=== PATIENT | male | born 1980 | race Two or more races ===

== ENCOUNTER 2019-04-19 02:59 | Inpatient (IN) | payer SELFPAY ==
[~2019-04-19] VITALS: Ht 177.8 cm; Wt 132.9 kg
[2019-04-19] MEDS ORDERED: SODIUM CHLORIDE 0.9% 500 ML IVB ONE (03:55)
[2019-04-19] MEDS ORDERED: ONDANSETRON HCL 4 MG/2 ML VIAL IV ONE (04:00)
[2019-04-19] MEDS ORDERED: HYDROmorphone HCL 2 MG/ML VL IV ONE ×2 (04:00→06:00)
[2019-04-19 04:37] LABS: Basophils # (auto) 0 uL; Basophils % (auto) 0.1 % (0.0-2.0); Eosinophils # (auto) 0.2 uL; Eosinophils % (auto) 1.4 % (0.0-7.0); Hematocrit 48.7 % (41.0-53.0); Hemoglobin 16.5 g/dL (13.5-17.5); Lymphocytes # (auto) 3.6 uL; Lymphocytes % (auto) 29.4 % (10.0-50.0); Mean Corpuscular Hgb Conc. 33.9 g/dL (32.0-36.0); Mean Corpuscular Volume 88.5 fL (80.0-100.0); Monocytes # (auto) 0.7 uL; Monocytes % (auto) 5.5 % (0.0-12.0); Neutrophils # (auto) 7.8 uL; Neutrophils % (auto) 63.6 % (37.0-80.0); Nucleated Red Blood Cells % 0.1 %; Platelet Count (auto) 209 10^3/uL (140-450); Red Cell Distribution Width 13.6 % (11.8-14.3); White Blood Cell 12.2 10^3/uL (4.4-10.8)
[2019-04-19 04:39] LABS: Urine Bacteria NONE SEEN /hpf (None Seen); Urine Blood Negative /uL (Negative); Urine Specific Gravity 1.014 (1.001-1.035); Urine WBC <1 /hpf (0 - 3)
[2019-04-19 04:47] LABS: Potassium 3.1 mmol/L (3.5-5.1)
[2019-04-19 04:50] LABS: Magnesium 2.4 mg/dL (1.6-2.6)
[2019-04-19 04:54] LABS: Albumin 4.4 g/dL (3.4-5.0); BUN/Creatinine Ratio 14.9; Bilirubin, Total 0.2 mg/dL (0.2-1.0); Calcium 9.7 mg/dL (8.5-10.1); Total Protein 8.5 g/dL (6.4-8.2)
[2019-04-19 04:58] LABS: INR 0.89 (0.9-1.15); Partial Thromboplastin Time 24.3 sec (23.64-32.05)
[2019-04-19] MEDS ORDERED: ACETAMINOPHEN 325 MG TAB PO PRN (06:30)
[2019-04-19] MEDS ORDERED: MORPHINE SULFATE 4 MG/ML SYR/VIAL IV PRN (06:30)
[2019-04-19] MEDS ORDERED: TEMAZEPAM 15 MG CAP PO PRN (06:30)
--- NOTE | 2019-04-19 08:40 | NUR ---
MS admit from [facility] admitted to tele/MS after SBAR received. Patient oriented to JERRI RAMOS, primary RN, unit, room, bed, and unit policies regarding patient care and visiting hours. Patient weighed by bedscale and encouraged to call if they need something. All questions and concerns addressed, patient verbalized understanding. Note: []
[2019-04-19 08:45] VITALS: BP 152/86
[2019-04-19] MEDS ORDERED: FAMOTIDINE 20 MG TAB PO SCH (10:00)
[2019-04-19] MEDS: HYDROcodone-ACET 5/325MG TAB PO PRN (10:11)
[2019-04-19 12:44] VITALS: BP 156/91
[2019-04-19] MEDS ORDERED: POTASSIUM CHL 20 Meq TABLET PO ONE (13:00)
[2019-04-19] MEDS ORDERED: amLODIPine BESYLATE 5 MG TAB PO ONE (13:00)
[2019-04-19] MEDS ORDERED: PANTOPRAZOLE 40 MG TAB PO ONE (13:00)
[2019-04-19] MEDS: MORPHINE SULFATE 4 MG/ML SYR/VIAL IV PRN ×2 (13:06→21:26)
[2019-04-19 17:00] VITALS: BP 145/83
--- NOTE | 2019-04-19 19:35 | NUR ---
Opening Shift Note Assumed care of patient, awake and alert oriented x4. No S/S of distress/SOB or pain noted. Family member at the bedside. Bed is in lowest locked position with bed rails up x2 and call light is within reach of the patient. Instructed on POC and to call for assist PRN.
[2019-04-19] MEDS: PANTOPRAZOLE 40 MG TAB PO SCH (21:27)
[2019-04-19 22:00] VITALS: BP 129/71
[2019-04-20] MEDS: MORPHINE SULFATE 4 MG/ML SYR/VIAL IV PRN ×3 (04:00→18:48)
[2019-04-20] MEDS: HYDROcodone-ACET 5/325MG TAB PO PRN (04:56)
[2019-04-20 05:02] VITALS: BP 131/77
[2019-04-20 06:41] LABS: BUN/Creatinine Ratio 16.7; Calcium 9.5 mg/dL (8.5-10.1); Potassium 3.6 mmol/L (3.5-5.1)
[2019-04-20 06:51] LABS: Basophils # (auto) 0 uL; Basophils % (auto) 0.2 % (0.0-2.0); Eosinophils # (auto) 0 uL; Hematocrit 46.9 % (41.0-53.0); Hemoglobin 15.6 g/dL (13.5-17.5); Lymphocytes # (auto) 1.5 uL; Lymphocytes % (auto) 7.9 % (10.0-50.0); Mean Corpuscular Hemoglobin 29.5 pg (28.0-32.0); Mean Corpuscular Hgb Conc. 33.3 g/dL (32.0-36.0); Mean Corpuscular Volume 88.8 fL (80.0-100.0); Monocytes # (auto) 1.3 uL; Monocytes % (auto) 6.6 % (0.0-12.0); Neutrophils # (auto) 16.2 uL; Neutrophils % (auto) 85.3 % (37.0-80.0); Platelet Count (auto) 216 10^3/uL (140-450); Red Blood Cells 5.29 10^6/uL (4.5-5.90); Red Cell Distribution Width 13.5 % (11.8-14.3)
[2019-04-20 07:13] LABS: Cholesterol 219 mg/dL (< 200)
[2019-04-20 07:16] LABS: HDL Cholesterol 74 mg/dL (40-59); LDL Cholesterol 138 mg/dL (< 100); Triglycerides 90 mg/dL (< 150)
[2019-04-20] MEDS ORDERED: LIDOCAINE VISCOUS 2% 15ML UD ONE (08:53)
[2019-04-20] MEDS ORDERED: NALOXONE HCL 0.4 MG/ML VIAL ONE (08:53)
[2019-04-20] MEDS ORDERED: FLUMAZENIL 0.1 MG/ML INJ 10ML MDV IV ONE (08:53)
[2019-04-20] MEDS ORDERED: SODIUM CHLORIDE LOCK 10 ML ONE (08:53)
[2019-04-20] MEDS ORDERED: diphenhdrAMINE HCL 50 MG/1 ML VL ONE (08:54)
[2019-04-20 09:00] VITALS: BP 124/78
[2019-04-20] MEDS: fentaNYL CITRATE 100 MCG/2 ML VL ONE ×2 (09:09→09:12)
[2019-04-20] MEDS: MIDAZOLAM HCL 5 MG/ML-1ML VIAL ONE ×2 (09:09→09:12)
--- NOTE | 2019-04-20 09:53 | NUR ---
Pt is an alert and oriented male that resides with family. 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 Pt currently has no insurance and will be referred to [place] for assistance with [facility] if he qualifies. Pt will be provided information on [employer] prescription program and [employer] prescription Drug Savings Card for assistance with obtaining medications. Pt has transportation home upon d/c. Addendum: 04/20/19 at 0959 by RAISA GALINDO Amended: Links added.
[2019-04-20] MEDS: PANTOPRAZOLE 40 MG TAB PO SCH ×2 (10:00→21:40)
[2019-04-20] MEDS ORDERED: amLODIPine BESYLATE 5 MG TAB PO SCH (10:00)
[2019-04-20] MEDS ORDERED: LISINOPRIL 20 MG TAB PO ONE (11:30)
[2019-04-20 13:00] VITALS: BP 147/97
[2019-04-20] MEDS ORDERED: IOHEXOL 300 MG/ML 100ML BOTTLE IJ ONE (14:19)
[2019-04-20 14:38] LABS: Basophils # (auto) 0.1 uL; Basophils % (auto) 0.3 % (0.0-2.0); Eosinophils # (auto) 0 uL; Eosinophils % (auto) 0.1 % (0.0-7.0); Hematocrit 47.2 % (41.0-53.0); Hemoglobin 16.1 g/dL (13.5-17.5); Lymphocytes # (auto) 1.4 uL; Lymphocytes % (auto) 7.3 % (10.0-50.0); Mean Corpuscular Hemoglobin 30.1 pg (28.0-32.0); Mean Corpuscular Hgb Conc. 34.1 g/dL (32.0-36.0); Mean Corpuscular Volume 88.3 fL (80.0-100.0); Monocytes # (auto) 1.4 uL; Neutrophils # (auto) 16.9 uL; Neutrophils % (auto) 85.3 % (37.0-80.0); Nucleated Red Blood Cells % 0.1 %; Platelet Count (auto) 200 10^3/uL (140-450); Red Blood Cells 5.35 10^6/uL (4.5-5.90); Red Cell Distribution Width 13.7 % (11.8-14.3); White Blood Cell 19.8 10^3/uL (4.4-10.8)
[2019-04-20] MEDS ORDERED: cefTRIAXone 1GM/50ML D5W 50 ML IV ONE (16:15)
[2019-04-20] MEDS ORDERED: hydrALAZINE HCL 20 MG/ML VL IV PRN (16:15)
[2019-04-20 17:00] VITALS: BP 141/90
[2019-04-20] MEDS ORDERED: metroNIDAZOLE 500MG/100ML 100 ML IV ONE (17:00)
[2019-04-20] MEDS: SODIUM CHLORIDE 0.9% 1,000 ML IV SCH (17:01)
--- NOTE | 2019-04-20 19:44 | NUR ---
RECEIVED PATIENT FROM DAY SHIFT RN. PATIENT RESTING IN BED. NO S/S OF DISTRESS NOTED. C/O PAIN @ 6/10 AFTER PAIN MEDICATION GIVEN EARLIER. INSTRUCTED PATIENT THE SCHEDULE OF PAIN MANAGEMENT, WILL COME BACK FOR PAIN MEDICATION WHEN THE TIME IS DUE AND PER PATIENT REQUESTS. REINFORCED PATIENT NPO FOR NOW. PATIENT VERBALIZED UNDERSTANDING. POC INSTRUCTED AND ENCOURAGED PATIENT TO CALL FOR BRIDGE CARPENTER IF NEEDED. BED IN LOWEST POSITION WITH SIDE RAILS UP X 2. CALL GOMEZ WITHIN REACH. CONTINUE TO MONITOR FOR CHANGES Q1H AND PRN.
[2019-04-20] MEDS: ATORVASTATIN 20 MG TAB PO SCH (21:36)
[2019-04-20] MEDS: metroNIDAZOLE 500MG/100ML 100 ML IV SCH (21:36)
[2019-04-20 22:00] VITALS: BP 135/76
--- NOTE | 2019-04-20 22:31 | NUR ---
PATIENT SLEEPING. NO S/S OF DISTRESS AND PAIN NOTED AT THIS TIME. CONTINUE TO MONITOR.
[2019-04-21 05:00] VITALS: BP 119/74
[2019-04-21] MEDS: SODIUM CHLORIDE 0.9% 1,000 ML IV SCH ×2 (05:43→18:24)
[2019-04-21] MEDS: metroNIDAZOLE 500MG/100ML 100 ML IV SCH ×3 (05:43→21:32)
[2019-04-21 06:19] LABS: Basophils # (auto) 0 uL; Basophils % (auto) 0.2 % (0.0-2.0); Eosinophils # (auto) 0 uL; Eosinophils % (auto) 0.2 % (0.0-7.0); Hematocrit 42.5 % (41.0-53.0); Hemoglobin 14.5 g/dL (13.5-17.5); Lymphocytes # (auto) 1.6 uL; Lymphocytes % (auto) 9.3 % (10.0-50.0); Mean Corpuscular Hemoglobin 30.4 pg (28.0-32.0); Mean Corpuscular Volume 89.2 fL (80.0-100.0); Monocytes # (auto) 1.4 uL; Monocytes % (auto) 8.1 % (0.0-12.0); Neutrophils # (auto) 14.4 uL; Neutrophils % (auto) 82.2 % (37.0-80.0); Platelet Count (auto) 171 10^3/uL (140-450); Red Blood Cells 4.77 10^6/uL (4.5-5.90); Red Cell Distribution Width 13.4 % (11.8-14.3); White Blood Cell 17.5 10^3/uL (4.4-10.8)
[2019-04-21 06:34] LABS: Magnesium 2.7 mg/dL (1.6-2.6); Potassium 3.7 mmol/L (3.5-5.1)
[2019-04-21 06:36] LABS: BUN/Creatinine Ratio 16.7; Calcium 9.3 mg/dL (8.5-10.1)
[2019-04-21 09:00] VITALS: BP 137/86
[2019-04-21] MEDS: cefTRIAXone 1GM/50ML D5W 50 ML IV SCH (09:36)
[2019-04-21] MEDS: PANTOPRAZOLE 40 MG TAB PO SCH ×2 (09:36→21:32)
[2019-04-21] MEDS: LISINOPRIL 20 MG TAB PO SCH (09:38)
--- NOTE | 2019-04-21 11:07 | NUR ---
Nutrition Assessment Notes please see attached link for complete assessment Est. Needs ABW [id number] kcal (17-20 kcal/kgBW), 104-114 gms pro (1.0-1.1 gms/kgBW). Will continue to monitor pertinent labs and reassess nutrient need prn. Addendum: 04/21/19 at [address] Amended: Links added.
[2019-04-21] MEDS ORDERED: fentaNYL CITRATE 100 MCG/2 ML VL ONE (11:21)
[2019-04-21] MEDS ORDERED: ROCURONIUM 10MG/ML 10ML VIAL IV ONE (11:22)
[2019-04-21] MEDS ORDERED: ONDANSETRON HCL 4 MG/2 ML VIAL ONE (11:22)
[2019-04-21] MEDS ORDERED: PROPOFOL 10 MG/ML 20 ML IV ONE (11:22)
[2019-04-21] MEDS ORDERED: NEOSTIGMINE 1 MG/ML INJ (10mg/10ML VIAL) ONE ×2 (11:22→13:12)
[2019-04-21] MEDS ORDERED: MIDAZOLAM HCL 1MG/1ML-2 ML VIAL ONE ×2 (11:22→13:41)
[2019-04-21] MEDS ORDERED: GLYCOPYRROLATE 0.2 MG/ML 1ML VIAL ONE ×2 (11:22→13:12)
[2019-04-21] MEDS ORDERED: SODIUM CHLORIDE LOCK 20 ML ONE (11:22)
[2019-04-21] MEDS ORDERED: METOCLOPRAMIDE HCL 5MG/ml INJ 2ml VIAL IV ONE (12:15)
[2019-04-21] MEDS ORDERED: KETOROLAC TROMETH 30 MG/ML 1ML VIAL IV ONE (12:15)
[2019-04-21] MEDS: HYDROmorphone HCL 2 MG/ML VL IV PRN ×2 (14:15→14:25)
--- NOTE | 2019-04-21 16:50 | NUR ---
EDUCATED PATIENT HOW TO EMPTY SANDY DRAIN. PATIENT AND VERBALIZED UNDERSTANDING. 100 MLS OF SANGUINEOUS FLUID DRAINED. PATIENT DENIES ANY PAIN AT THIS TIME.
[2019-04-21 17:00] VITALS: BP 111/67
--- NOTE | 2019-04-21 19:40 | NUR ---
RECEIVED PATIENT FROM DAY SHIFT RN. PATIENT RESTING IN BED. NO S/S OF DISTRESS NOTED. DENIED PAIN AT REST, BUT MORE PAIN WHEN HE'S MOVING. DRESSING ON INCISION SITE DRY AND INTACT. SANDY DRAIN IN PLACE DRAINING GRAVITY. EMPTIED 50ML FROM SANDY DRAIN. ABDOMEN BINDER IN PLACE. POC INSTRUCTED AND ENCOURAGED PATIENT TO CALL FOR LEGAL WRITING PROFESSOR IF NEEDED. BED IN LOWEST POSITION WITH SIDE RAILS UP X 2. CALL GOMEZ WITHIN REACH. CONTINUE TO MONITOR FOR CHANGES Q1H AND PRN.
--- NOTE | 2019-04-21 21:20 | NUR ---
INSTRUCTED PATIENT THE IMPORTANCE OF SCD AND PUT IT ON. PATIENT SATISFIED WITH SCD ON. CONTINUE TO MONITOR.
[2019-04-21] MEDS: ATORVASTATIN 20 MG TAB PO SCH (21:32)
[2019-04-21] MEDS: MORPHINE SULFATE 4 MG/ML SYR/VIAL IV PRN (21:33)
--- NOTE | 2019-04-21 21:33 | NUR ---
PATIENT C/O PAIN @ 05/24. MEDICATED PATIENT ORDERED. CONTINUE TO MONITOR.
[2019-04-21 22:00] VITALS: BP 130/87
--- NOTE | 2019-04-22 01:23 | NUR ---
ASSISTED PATIENT TO BATHROOM AND BACK TO BED WITH STEADY GAIT. PATIENT TOLERATED WELL. CONTINUE TO MONITOR.
[2019-04-22 05:00] VITALS: BP 124/84
--- NOTE | 2019-04-22 05:23 | NUR ---
EMPTIED SANDY DRAIN 50 ML SEROSANGUINEOUS FLUID. PATIENT TOLERATED WELL. CONTINUE TO MONITOR.
[2019-04-22] MEDS: metroNIDAZOLE 500MG/100ML 100 ML IV SCH ×3 (05:54→21:41)
[2019-04-22] MEDS: SODIUM CHLORIDE 0.9% 1,000 ML IV SCH ×2 (05:55→21:42)
[2019-04-22 07:38] LABS: Basophils # (auto) 0 uL; Basophils % (auto) 0.2 % (0.0-2.0); Eosinophils # (auto) 0.1 uL; Eosinophils % (auto) 0.7 % (0.0-7.0); Hematocrit 39.2 % (41.0-53.0); Hemoglobin 13.1 g/dL (13.5-17.5); Lymphocytes # (auto) 1.7 uL; Lymphocytes % (auto) 15.5 % (10.0-50.0); Mean Corpuscular Hgb Conc. 33.4 g/dL (32.0-36.0); Mean Corpuscular Volume 89.6 fL (80.0-100.0); Monocytes # (auto) 0.8 uL; Monocytes % (auto) 7.8 % (0.0-12.0); Neutrophils # (auto) 8.2 uL; Neutrophils % (auto) 75.8 % (37.0-80.0); Nucleated Red Blood Cells % 0.1 %; Platelet Count (auto) 162 10^3/uL (140-450); Red Blood Cells 4.38 10^6/uL (4.5-5.90); Red Cell Distribution Width 13.4 % (11.8-14.3); White Blood Cell 10.8 10^3/uL (4.4-10.8)
[2019-04-22] MEDS: cefTRIAXone 1GM/50ML D5W 50 ML IV SCH (08:26)
[2019-04-22] MEDS: HYDROcodone-ACET 5/325MG TAB PO PRN ×2 (08:27→21:42)
[2019-04-22 08:49] VITALS: BP 142/82
[2019-04-22] MEDS: PANTOPRAZOLE 40 MG TAB PO SCH ×2 (10:29→21:42)
[2019-04-22] MEDS: LISINOPRIL 20 MG TAB PO SCH (10:29)
[2019-04-22] MEDS ORDERED: ALBUTEROL SULF 2.5 MG/0.5ML(0.5%) NEB SOLN NEB PRN (11:30)
[2019-04-22 12:54] VITALS: BP 142/82
[2019-04-22 13:00] VITALS: BP 137/88
--- NOTE | 2019-04-22 15:00 | NUR ---
Respiratory note: PRN MED NEB TX NOT INDICATED AT THIS TIME. HR 93, RR 16, SPO2 91% ON RA, BS CLEAR AND DIMINISHED. PT STATES BREATHING IS GOOD. PT INFORMED TO HIT CALL BUTTON IF FEELING SOB OR WHEEZING.
[2019-04-22 17:00] VITALS: BP 139/86
--- NOTE | 2019-04-22 19:48 | NUR ---
RECEIVED PATIENT FROM DAY SHIFT RN. PATIENT RESTING IN BED. FAMILY AT BEDSIDE. NO S/S OF DISTRESS NOTED. DENIED PAIN AT REST. DRESSING ON INCISION SITE DRY AND INTACT. SANDY DRAIN IN PLACE DRAINING GRAVITY. EMPTIED 50ML SEROSANGUINEOUS LIQUID. ABDOMEN BINDER IN PLACE, SCD ON. POC INSTRUCTED AND ENCOURAGED PATIENT TO CALL FOR GEAR MACHINE OPERATOR IF NEEDED. BED IN LOWEST POSITION WITH SIDE RAILS UP X 2. CALL GOMEZ WITHIN REACH. CONTINUE TO MONITOR FOR CHANGES Q1H AND PRN.
[2019-04-22] MEDS: ATORVASTATIN 20 MG TAB PO SCH (21:41)
--- NOTE | 2019-04-22 21:42 | NUR ---
PATIENT C/O PAIN @ 04/24. MEDICATED PATIENT ORDERED. CONTINUE TO MONITOR.
[2019-04-22 22:00] VITALS: BP 158/92
--- NOTE | 2019-04-22 22:26 | NUR ---
Respiratory note: PT SEEN AND ASSESSED FOR PRN MED NEB TX AT 2226. TX IS NOT INDICATED AT THIS TIME. PT STATED THAT HIS BREATHING FEELS GOOD. NO SIGNS OF RESPIRATORY DISTRESS NOTED. BREATH SOUNDS WERE CLEAR BILATERALLY. HR 71 RR 20 POX 92% ON ROOM AIR. PT AWARE TO CALL FOR RT IF ANY DISTRESS DOES OCCUR THROUGHOUT THE NIGHT.
--- NOTE | 2019-04-23 02:20 | NUR ---
REPORT GIVEN TO TIFF YU.
--- NOTE | 2019-04-23 02:22 | NUR ---
Assumed Pt Care Assumed pt care from Ashtyn YU.
[2019-04-23 05:00] VITALS: BP 154/92
[2019-04-23] MEDS: metroNIDAZOLE 500MG/100ML 100 ML IV SCH ×3 (05:38→21:45)
[2019-04-23 05:58] LABS: Basophils # (auto) 0 uL; Basophils % (auto) 0.2 % (0.0-2.0); Eosinophils # (auto) 0.2 uL; Eosinophils % (auto) 2.4 % (0.0-7.0); Hematocrit 40.5 % (41.0-53.0); Hemoglobin 13.7 g/dL (13.5-17.5); Lymphocytes % (auto) 22.4 % (10.0-50.0); Mean Corpuscular Hgb Conc. 33.8 g/dL (32.0-36.0); Mean Corpuscular Volume 88.8 fL (80.0-100.0); Monocytes # (auto) 0.8 uL; Monocytes % (auto) 8.5 % (0.0-12.0); Neutrophils # (auto) 6.1 uL; Neutrophils % (auto) 66.5 % (37.0-80.0); Nucleated Red Blood Cells % 0.1 %; Platelet Count (auto) 213 10^3/uL (140-450); Red Blood Cells 4.57 10^6/uL (4.5-5.90); Red Cell Distribution Width 13.2 % (11.8-14.3); White Blood Cell 9.2 10^3/uL (4.4-10.8)
--- NOTE | 2019-04-23 06:07 | NUR ---
SANDY Drain SANDY Drainage is 55mL of serous-sanguinous. No s/s of infection noted. Will endorse information to day shift nurse.
[2019-04-23 06:17] LABS: Potassium 3.8 mmol/L (3.5-5.1)
[2019-04-23 06:21] LABS: BUN/Creatinine Ratio 10.5; Calcium 8.6 mg/dL (8.5-10.1)
--- NOTE | 2019-04-23 07:45 | NUR ---
OPENING SHIFT NOTE ASSUMED CARE OF PATIENT PATIENT AWAKE AND ALERT SITTING UP IN BED. NO S/S OF DISTRESS OR SOB NOTED. BED IN LOWEST LOCKED POSITION, CALL LIGHT WITHIN REACH. REVIEWED POC AND ALL QUESTIONS AND CONCERNS ADDRESSED. CONTINUING TO MONITOR.
[2019-04-23] MEDS: PANTOPRAZOLE 40 MG TAB PO SCH ×2 (08:05→21:45)
[2019-04-23] MEDS: LISINOPRIL 20 MG TAB PO SCH (08:05)
[2019-04-23] MEDS: cefTRIAXone 1GM/50ML D5W 50 ML IV SCH (08:05)
[2019-04-23] MEDS: MORPHINE SULFATE 4 MG/ML SYR/VIAL IV PRN (08:06)
[2019-04-23 09:01] VITALS: BP 152/87
--- NOTE | 2019-04-23 09:16 | NUR ---
Respiratory note: PT ASSESSED FOR PRN MED NEB TX. NO TX DESIRED NOR INDICATED. HR 80 RR 16 SPO2 93% ON RA BREATH SOUNDS ARE CLEAR/DIMINISHED T/O. PT DENIES SOB/DIFF BREATHING, NO DISTRESS NOTED. PT AND RN AWARE TO HAVE RT PAGED IF NEEDED.
[2019-04-23 13:00] VITALS: BP 143/84
[2019-04-23] MEDS: SODIUM CHLORIDE 0.9% 1,000 ML IV SCH (14:42)
--- NOTE | 2019-04-23 15:26 | NUR ---
Nutrition Follow-up Notes Wt.: 135.2 kg as of yesterday. Pt's asleep, no immediate family member at bedside when rounded this morning. Pt's s/p lap richard yesterday, no signs of distress noted earlier, on Clear Liquid diet with good PO intake aeb 100% consumed meal last night, noted to start today on Full Liquid diet. Est. Needs ABW [id number] kcal (17-20 kcal/kgBW), 104-114 gms pro (1.0-1.1 gms/kgBW). Will continue to monitor pertinent labs and reassess nutrient need prn. Labs: Pertinent labs today wnl; 04/20/19 Chol 219 H, LDL 138 H, HDL 74 H Skin: Luca scale 19, low risk, pt's medial anterior abdomen incision dry and intact per long winder tender. GI: Pt's no bowel activity since 04/19/19 BM per long winder tender. PES: Altered nutrition related lab values r/t acute/chronic medical condition aeb elev LIPID profile Obesity r/t food intake more than body requirement aeb 179% IBW, BMI 42.8 kg/m2 and increased body adiposity Will continue to monitor PO intake, skin status, pertinent labs and weight trend. F/u in 3 to 5 days. Rec.: 1.) Advance oral diet when medically appropriate. 2.) Continue close supervision during meals. 3.) Refer pt to RD for further nutrition education and weight monitoring upon discharge. 4.) Continue current plan of care.
[2019-04-23 17:00] VITALS: BP 156/86
--- NOTE | 2019-04-23 19:21 | NUR ---
END OF SHIFT NOTE PATIENT RESTING COMFORTABLY IN BED AT THIS TIME. NO S/S OF DISTRESS OR SOB NOTED. EMPTIED 50ML OF BRIGHT RED DRAINAGE FROM SANDY DRAIN. PATIENT DENIES PAIN AT THIS TIME. BED IN LOWEST LOCKED POSITION, CALL LIGHT WITHIN REACH. CARE ENDORSED TO MEHNAZ RN.
--- NOTE | 2019-04-23 19:30 | NUR ---
OPENING SHIFT NOTE RECEIVED REPORT FROM DAYSHIFT RN. NO S/S OF DISTRESS OR SOB. NO PAIN NOTED OR REPORTED AT THIS TIME. PATIENT A/O X4, AMBULATORY. SANDY DRAIN IN PLACE DRAINING SEROSANGUINEOUS FLUID. UPDATED PATIENT ON POC, VERBALIZED UNDERSTANDING. BED LOCKED IN LOW POSITION, CALL LIGHT WITHIN REACH. WILL CONTINUE TO MONITOR PATIENT Q1HR AND PRN.
--- NOTE | 2019-04-23 20:08 | NUR ---
RT NOTE PRN ASSESSMENT DONE PT LAYING IN BED COMFORTABLY NO RESP DISTRESS NOTED AT THIS TIME.
[2019-04-23] MEDS: ATORVASTATIN 20 MG TAB PO SCH (21:45)
[2019-04-23 22:00] VITALS: BP 137/78
[2019-04-23] MEDS: HYDROcodone-ACET 5/325MG TAB PO PRN (22:15)
[2019-04-24 05:00] VITALS: BP 142/89
[2019-04-24] MEDS: SODIUM CHLORIDE 0.9% 1,000 ML IV SCH (05:34)
[2019-04-24] MEDS: metroNIDAZOLE 500MG/100ML 100 ML IV SCH ×2 (05:35→14:15)
--- NOTE | 2019-04-24 05:38 | NUR ---
SANDY OUTPUT DRAINED 30 ML OF SEROSANGUINEOUS OUTPUT FROM SANDY.
[2019-04-24 06:34] LABS: Basophils # (auto) 0 uL; Basophils % (auto) 0.3 % (0.0-2.0); Eosinophils # (auto) 0.2 uL; Eosinophils % (auto) 1.5 % (0.0-7.0); Hematocrit 40.5 % (41.0-53.0); Hemoglobin 13.8 g/dL (13.5-17.5); Lymphocytes # (auto) 1.9 uL; Lymphocytes % (auto) 18.1 % (10.0-50.0); Mean Corpuscular Hemoglobin 30.2 pg (28.0-32.0); Mean Corpuscular Hgb Conc. 34.2 g/dL (32.0-36.0); Mean Corpuscular Volume 88.4 fL (80.0-100.0); Monocytes # (auto) 0.9 uL; Monocytes % (auto) 8.3 % (0.0-12.0); Neutrophils # (auto) 7.5 uL; Neutrophils % (auto) 71.8 % (37.0-80.0); Platelet Count (auto) 252 10^3/uL (140-450); Red Blood Cells 4.58 10^6/uL (4.5-5.90); White Blood Cell 10.4 10^3/uL (4.4-10.8)
[2019-04-24 06:49] LABS: Calcium 8.7 mg/dL (8.5-10.1); Potassium 3.8 mmol/L (3.5-5.1)
--- NOTE | 2019-04-24 06:49 | NUR ---
RT NOTE: NO TX INDICATED AT THIS TIME. NO SIGNS OF RESPIRATORY DISTRESS NOTED. LUNG SOUNDS CLEAR/DIMINISHED T/O. ON RA SPO2 96 HR 83 RR 16. PT AWARE TO CALL IF NEED FOR TX ARISES. WILL CONTINUE TO MONITOR.
[2019-04-24 06:51] LABS: BUN/Creatinine Ratio 12.5
[2019-04-24 07:13] LABS: % Iron Saturation 15.5 % (20-55)
--- NOTE | 2019-04-24 07:50 | NUR ---
OPENING SHIFT NOTE ASSUMED CARE OF PATIENT. PATIENT UP TO RESTROOM AT THIS TIME. WILL CONTINUE TO MONITOR.
[2019-04-24 09:00] VITALS: BP 138/83
[2019-04-24 09:42] LABS: Ferritin 801.6 ng/mL (10-322)
[2019-04-24 09:44] LABS: Folate (Folic Acid) 6.51 ng/mL (5.38-24)
[2019-04-24] MEDS: LISINOPRIL 20 MG TAB PO SCH (10:29)
[2019-04-24] MEDS: cefTRIAXone 1GM/50ML D5W 50 ML IV SCH (10:29)
[2019-04-24] MEDS: PANTOPRAZOLE 40 MG TAB PO SCH (10:29)
--- NOTE | 2019-04-24 11:02 | NUR ---
AT BEDSIDE DR ROME AT BEDSIDE AT THIS TIME. NEW ORDERS FOR DISCHARGE AFTER CLEARED BY KATY. AWAITING DR BURNS. CONTINUING TO MONITOR.
[2019-04-24] MEDS ORDERED: LEVO500T21 PO (12:19)
[2019-04-24] MEDS ORDERED: METR500T PO (12:19)
[2019-04-24] MEDS ORDERED: ATOR20TA PO (12:19)
[2019-04-24] MEDS ORDERED: LISI-646 PO (12:19)
[2019-04-24 12:54] VITALS: BP 156/97
[2019-04-24 17:00] VITALS: BP 147/91
--- NOTE | 2019-04-24 17:31 | NUR ---
CARE ENDORSED CARE ENDORSED AT THIS TIME TO GIGI MORALEZ.
--- NOTE | 2019-04-24 18:07 | NUR ---
RT NOTE: PT RECIEVED ON RA. PT AWAKE AND ALERT AT THIS TIME. PT STATES HE IS NOT SOB. BS DIM T/O. SPO2 92%, HR 76, RR 20. NO PRN TX INDICATED AT THIS TIME. PT AWARE TO CALL FOR TX IF NEEDED.
--- NOTE | 2019-04-24 19:45 | NUR ---
PAGED THROUGH MANAGER OF RADIOLOGY AWAITING CLEARANCE BY MD BURNS FOR PATIENT TO BE DISCHARGED WILL WAIT FOR CALL BACK
--- NOTE | 2019-04-24 19:50 | NUR ---
CALL BACK FROM PER , PATIENT IS CLEARED, OK TO DISCHARGE HOME NOW.
--- NOTE | 2019-04-24 20:15 | NUR ---
SPOKE WITH RE:DRESSING SITE TO SANDY DRAIN IS SATURATED WITH OLD BLOOD. PER "REMOVE DRESSING TO SANDY SITE AND LEAVE IT OPEN TO AIR. I WILL SEE THE PATIENT IN ONE WEEK OUTPATIENT"
[2019-04-24 20:31] VITALS: BP 122/75
[2019-04-24 21:20] VITALS: BP 122/75
--- NOTE | 2019-04-24 21:30 | NUR ---
Discharge instructions given as ordered. Encourage to follow up with PMD as instructed. All questions and concerns addressed. Patient verbalized understanding. Medication reconciliation form completed and copy given to patient. IV removed with catheter intact, pressure dressing applied.Patient taken to vehicle via wheelchair with all personal belongings, accompanied by staff and family member. No distress noted at time of departure. PATIENT AND GIVEN INSTRUCTIONS TO FOLLOW UP WITH PRIMARY MD IN ONE WEEK.PT CURRENTLY DOES NOT HAVE PCP. RESOURCES GIVEN INCLUDING [employer] [facility]'S BUSINESS CARD/JEFF HANKINS INFO IN [facility]. PATIENT AND SPOUSE INSTRUCTED TO FOLLOW UP WITH MD BURNS IN ONE WEEK, PHONE NUMBER PROVIDED. PATIENT ALSO EDUCATED TO FOLLOW UP WITH UROLOGY IN 2-3 WEEKS FOR RENAL MASS. PHONE NUMBERS GIVEN TO PATIENT AND SPOUSE, THEY VERBALIZED UNDERSTANDING AND IMPORTANCE. SURGICAL SITE CARE EXPLAINED AND ALL D/C PAPERWORK AND PRESCRIPTIONS GIVEN TO PATIENT AND SPOUSE.
== END 2019-04-24 21:30 | disposition home or self-care (01) | DRG 854 ==
LOC: ER 03:01 → OVERFLOW 06:21 → EAST 08:38
PROVIDERS: ADMIT Nurse Practitioner; ATTEND Internal Medicine
PROC: 0DJ08ZZ Inspection of Upper Intestinal Tract, Via Natural or Artificial Opening Endoscopic (ICD-10-PCS; principal; 2019-04-20 09:16)
PROC: 0FT44ZZ Resection of Gallbladder, Percutaneous Endoscopic Approach (ICD-10-PCS; 2019-04-21)
DX: A41.9 Sepsis, unspecified organism (principal); K80.00 Calculus of gallbladder with acute cholecystitis without obstruction; Z68.41 Body mass index [BMI] 40.0-44.9, adult; E87.1 Hypo-osmolality and hyponatremia; E66.01 Morbid (severe) obesity due to excess calories; E78.5 Hyperlipidemia, unspecified; I10 Essential (primary) hypertension; N28.89 Other specified disorders of kidney and ureter; K57.30 Diverticulosis of large intestine without perforation or abscess without bleeding; K76.0 Fatty (change of) liver, not elsewhere classified; N28.1 Cyst of kidney, acquired; Z80.42 Family history of malignant neoplasm of prostate; Z83.3 Family history of diabetes mellitus; Z90.5 Acquired absence of kidney
CPT/HCPCS: 36415; 43235; 71260; 74176; 76700; 78226; 80048; 80053; 80061; 81001; 82150; 82247; 82607; 82728; 82746; 83540; 83550; 83690; 83735; 85025; 85610; 85730; 86850; 86900; 86901; 87040; 93005; 96374; 96375; 96376; G0378; J0696; J1885; J2250; J2405; J2704; J3490

== ENCOUNTER 2019-10-29 11:58 | Emergency (ER) | payer MEDICAID, OTHER ==
[~2019-10-29] VITALS: Ht 177.8 cm; Wt 139.7 kg
[~2019-10-29 11:58] MED LIST: ATOR20TA PO; LEVO500T21 PO; LISI-646 PO; METR500T PO
[2019-10-29 16:19] LABS: Basophils # (auto) 0.1 uL; Basophils % (auto) 1.3 % (0.0-2.0); Eosinophils # (auto) 0.2 uL; Eosinophils % (auto) 1.5 % (0.0-7.0); Hematocrit 45.4 % (41.0-53.0); Hemoglobin 15.4 g/dL (13.5-17.5); Lymphocytes % (auto) 30.7 % (10.0-50.0); Mean Corpuscular Hemoglobin 29.5 pg (28.0-32.0); Mean Corpuscular Hgb Conc. 33.9 g/dL (32.0-36.0); Monocytes # (auto) 0.6 uL; Neutrophils # (auto) 5.9 uL; Neutrophils % (auto) 60.5 % (37.0-80.0); Platelet Count (auto) 223 10^3/uL (140-450); Red Blood Cells 5.22 10^6/uL (4.5-5.90); Red Cell Distribution Width 14.7 % (11.8-14.3); White Blood Cell 9.8 10^3/uL (4.4-10.8)
[2019-10-29 16:36] LABS: Alanine Aminotransferase 55 U/L (16-61); Albumin 3.9 g/dL (3.4-5.0); Anion Gap 7 (5-15); Aspartate Aminotransferase 22 U/L (15-37); BUN/Creatinine Ratio 18.1; Blood Urea Nitrogen 15 mg/dL (7-18); Calcium 8.9 mg/dL (8.5-10.1); Carbon Dioxide 27 mmol/L (21-32); Chloride 104 mmol/L (98-107); GFR African American 133 mL/min; GFR Non-African American 110 mL/min; Glucose 92 mg/dL (74-106); Potassium 4.2 mmol/L (3.5-5.1); Sodium 138 mmol/L (136-145)
[2019-10-29 16:41] LABS: Alkaline Phosphatase 99 U/L (45-117); Bilirubin, Total 0.4 mg/dL (0.2-1.0); Total Protein 7.8 g/dL (6.4-8.2)
[2019-10-29] MEDS ORDERED: cloNIDine HCL 0.1 MG TAB PO ONE (17:00)
[2019-10-29 17:51] VITALS: BP 133/71
== END 2019-10-29 19:09 | disposition home or self-care (01) ==
LOC: ER 11:58
DX: R51 Headache (principal); R07.89 Other chest pain; R19.7 Diarrhea, unspecified; Z79.899 Other long term (current) drug therapy
CPT/HCPCS: 36415; 71046; 80053; 84484; 85025; 93005

== ENCOUNTER 2019-12-16 11:32 | Emergency (ER) | payer OTHER ==
[~2019-12-16] VITALS: Ht 177.8 cm; Wt 139.7 kg
[2019-12-16 14:37] VITALS: BP 158/100
== END 2019-12-16 14:41 | disposition home or self-care (01) ==
LOC: ER 11:38
DX: R51 Headache (principal); I10 Essential (primary) hypertension
CPT/HCPCS: 70450; 82962